=== PATIENT | female | born 1980 | race Hispanic/Latino ===

== ENCOUNTER 2018-06-19 22:55 | Emergency (ER) | payer MEDICAID, OTHER ==
[2018-06-19] MEDS ORDERED: METHYLPREDNISOLONE SOD SUCC 125MG/2ML VIAL ONE (23:42)
[2018-06-19] MEDS ORDERED: GUAIFENESIN-CODEINE 5 ML SYRUP ONE (23:42)
[2018-06-19] MEDS ORDERED: IPRATROPIUM/ALBUTEROL SULFATE 3 ML SOLUTION IH ONE (23:54)
== END 2018-06-20 02:15 | disposition home or self-care (01) ==
LOC: EDH 22:55
DX: J45.909 Unspecified asthma, uncomplicated (principal)
CPT/HCPCS: 71046; 94640; 96372; 99283; J2930

== ENCOUNTER 2021-05-02 21:35 | Emergency (ER) | payer OTHER, SELFPAY ==
[~2021-05-02] VITALS: Ht 154.9 cm; Wt 69.4 kg
[2021-05-02 22:12] LABS: APPEARANCE,URINE Clear (CLEAR); BILIRUBIN,URINE Negative (NEGATIVE); COLOR,URINE Yellow (YELLOW); GLUCOSE, URINE (UA) Negative (NEGATIVE); KETONES,URINE Negative (NEGATIVE); LEUKOCYTE ESTERASE ,URINE Trace (NEGATIVE); NITRATE,URINE Negative (NEGATIVE); OCCULT BLOOD,URINE Negative (NEGATIVE); PROTEIN,URINE Negative (NEGATIVE); UROBILINOGEN,URINE 0.2 mg/dL (0.2-1.0)
[2021-05-02 22:16] LABS: HCG,QUAL RESULT NEGATIVE (NEGATIVE)
[2021-05-02 22:18] LABS: BACTERIA,URINE Few /HPF (None Seen); RBC,URINE None Seen /HPF (0-1); WBC,URINE 0-1 /HPF (0-1)
[2021-05-02 22:49] LABS: MEAN CORPUSCULAR HEMOGLOBIN 29.7 pg (27.0-33.0); MEAN CORPUSCULAR HGB CONC 33.6 g/dL (32.0-36.0); MEAN CORPUSCULAR VOLUME 88.4 fL (79-99); PLATELET COUNT (AUTO) 283 K/uL (130-400); RED BLOOD CELL COUNT(AUTO) 4.75 MIL/uL (4.00-5.50); WHITE BLOOD COUNT (AUTO) 7.5 K/uL (4.8-10.8)
[2021-05-02 22:54] LABS: BASOPHILS % (AUTO) 0.1 % (0.0-5.0); LYMPHOCYTES % (AUTO) 13.9 % (21.0-51.0); MONOCYTES % (AUTO) 1.2 % (3.0-13.0); NEUTROPHILS % (AUTO) 84.3 % (40.0-77.0)
[2021-05-02 22:59] LABS: CREATININE 0.7 mg/dL (0.5-1.5); POTASSIUM 3.9 mmol/L (3.5-5.1)
[2021-05-02 23:04] LABS: BILIRUBIN,TOTAL 0.3 mg/dL (0.2-1.0); TOTAL PROTEIN, SERUM 7.9 g/dL (6.0-8.3)
[2021-05-03] MEDS ORDERED: METOCLOPRAMIDE 10 MG/2 ML VIAL IVP ONE
[2021-05-03] MEDS ORDERED: KETOROLAC 30MG VIAL (30MG/ML) IV ONE
[2021-05-03] MEDS ORDERED: 0.9%NACL 1000ML 1,000 ML IV ONE
[2021-05-03] MEDS ORDERED: ORPHENADRINE CITRATE 30 MG/ML ML IV ONE
[2021-05-03] MEDS ORDERED: METO-296 PO (00:53)
[2021-05-03] MEDS ORDERED: ONDA4TAB10 PO (00:53)
[2021-05-03] MEDS ORDERED: MELO7.5T12 PO (00:53)
[2021-05-03] MEDS ORDERED: CYCL-309 PO (00:53)
[2021-05-03 01:06] VITALS: BP 97/55
== END 2021-05-03 01:12 | disposition home or self-care (01) ==
LOC: EDH 21:35
DX: E86.9 Volume depletion, unspecified (principal); G43.909 Migraine, unspecified, not intractable, without status migrainosus; M62.830 Muscle spasm of back; Z79.1 Long term (current) use of non-steroidal anti-inflammatories (NSAID); Z79.899 Other long term (current) drug therapy
CPT/HCPCS: 36415; 80053; 81001; 81025; 85025; 96361; 96374; 96375; 99284; J1885; J2360; J2765; J7030

== ENCOUNTER 2023-08-10 20:40 | Emergency (ER) | payer OTHER ==
[~2023-08-10] VITALS: Ht 160 cm; Wt 74.8 kg
[~2023-08-10 20:40] MED LIST: CYCL-309 PO; MELO7.5T12 PO; METO-296 PO; ONDA4TAB10 PO
[2023-08-10] MEDS ORDERED: IOHEXOL-350 75 ML VIAL IV ONE (20:52)
[2023-08-10 21:48] LABS: HEMATOCRIT 37.6 % (36-48); MEAN CORPUSCULAR HEMOGLOBIN 29.6 pg (27.0-33.0); MEAN CORPUSCULAR HGB CONC 34.8 g/dL (32.0-36.0); MEAN CORPUSCULAR VOLUME 85.1 fL (79-99); RED BLOOD CELL COUNT(AUTO) 4.42 MIL/uL (4.00-5.50); RED CELL DISTRIBUTION WIDTH 12.2 % (11.0-15.5); WHITE BLOOD COUNT (AUTO) 8.8 K/uL (4.8-10.8)
[2023-08-10] MEDS: DEXAMETHASONE SOD PHOSPHATE 4 MG/ML 1ML VIAL IV ONE (21:53)
[2023-08-10] MEDS: KETOROLAC 30MG VIAL (30MG/ML) IVP ONE (21:53)
[2023-08-10] MEDS: METOCLOPRAMIDE 10 MG/2 ML VIAL IVP ONE (21:53)
[2023-08-10] MEDS: FAMOTIDINE 20MG VIAL IV ONE (21:53)
[2023-08-10] MEDS: ASPIRIN 325MG TAB PO ONE (21:54)
[2023-08-10] MEDS: HYDROXYZINE 25 MG TABLET PO ONE (21:54)
[2023-08-10 21:57] LABS: CARBON DIOXIDE 24 mmol/L (21-32); CHLORIDE 103 mmol/L (101-111); CREATININE 0.6 mg/dL (0.5-1.5); GLOMERULAR FILTR. RATE CALC 116 mL/min (>90); GLUCOSE,RANDOM 89 mg/dL (70-105); POTASSIUM 3.6 mmol/L (3.5-5.1); SODIUM SERUM 133 mmol/L (136-145); UREA NITROGEN, BLOOD 10 mg/dL (7-18)
[2023-08-10 22:10] LABS: CREATINE KINASE, TOTAL 50 U/L (21-232); HCG,QUANTITATIVE 0 mIU/mL (0-5); THYROID STIMULATING HORMONE 8.38 uIU/mL (0.36-3.74)
[2023-08-10 22:11] LABS: ALCOHOL, BLOOD < 3 mg/dL (0-10)
[2023-08-10 22:34] LABS: AMPHET/METH SCREEN,URINE NEGATIVE (NEGATIVE); BARBITURATE SCREEN, URINE NEGATIVE (NEGATIVE); BENZODIAZEPINES SCREEN,URINE NEGATIVE (NEGATIVE); CANNABINOID SCREEN,URINE NEGATIVE (NEGATIVE); COCAINE SCREEN,URINE NEGATIVE (NEGATIVE); OPIATE SCREEN,URINE NEGATIVE (NEGATIVE); PHENCYCLIDINE SCREEN,URINE NEGATIVE (NEGATIVE)
[2023-08-10 22:37] LABS: APPEARANCE,URINE CLEAR (CLEAR); BILIRUBIN,URINE NEGATIVE (NEGATIVE); COLOR,URINE COLORLESS (YELLOW); GLUCOSE, URINE (UA) NEGATIVE (NEGATIVE); KETONES,URINE 5 mg/dL (NEGATIVE); LEUKOCYTE ESTERASE ,URINE NEGATIVE Leu/uL (NEGATIVE); NITRATE,URINE NEGATIVE (NEGATIVE); OCCULT BLOOD,URINE NEGATIVE (NEGATIVE); PH,URINE 5.5 (5.0-8.0); PROTEIN,URINE NEGATIVE (NEGATIVE); UROBILINOGEN,URINE 0.2 mg/dL (0.2-1.0)
[2023-08-10 22:40] LABS: ADD UA MICROSCOPIC NO
[2023-08-11 00:24] VITALS: BP 125/72; PULSE 88; RESP 18; O2SAT 100
== END 2023-08-11 00:27 | disposition home or self-care (01) ==
LOC: EDH 20:40
DX: G43.109 Migraine with aura, not intractable, without status migrainosus (principal); I10 Essential (primary) hypertension; E11.9 Type 2 diabetes mellitus without complications; R10.2 Pelvic and perineal pain; Z79.899 Other long term (current) drug therapy
CPT/HCPCS: 99285; 70496; 96374; 96375 ×2; 84443; 82550; 83735; 84484; 80048; 80305; 84702; 85027; 83605; 36415; 70498; 93005; 81003; 70450; J1100; J3490; J1885; J2765; Q9967